=== PATIENT | male | born 1970 | race Caucasian/White ===

== ENCOUNTER 2018-01-10 12:50 | Inpatient (IN) | payer MEDICAID, OTHER ==
[~2018-01-10] VITALS: Ht 177.8 cm; Wt 113.4 kg
[2018-01-10 13:36] LABS: BASOPHILS # (AUTO) 0.2 /CMM (0.0-0.2); BASOPHILS % (AUTO) 1.9 % (0.0-2.0); EOSINOPHILS % (AUTO) 1.4 % (0.0-6.0); HEMATOCRIT 46 % (39-51); HEMOGLOBIN 15.7 g/dL (13.5-17.5); LYMPHOCYTES # (AUTO) 2.7 /CMM (0.8-4.8); LYMPHOCYTES % (AUTO) 20.3 % (20.0-44.0); MEAN CORPUSCULAR HGB CONC 34 g/dl (31.0-36.0); MEAN CORPUSCULAR VOLUME 79 fL (80-96); MONOCYTES # (AUTO) 0.8 /CMM (0.1-1.30); MONOCYTES % (AUTO) 5.8 % (2.0-12.0); NEUTROPHILS # (AUTO) 9.2 /CMM (1.8-8.9); NEUTROPHILS % (AUTO) 70.6 % (43.0-81.0); PLATELET COUNT (AUTO) 222 /CMM (150-450); RDW COEFFICIENT OF VARIATION 12.7 (11.5-15.0); RED BLOOD CELL COUNT(AUTO) 5.82 MIL/uL (4.5-6.0); WHITE BLOOD COUNT (AUTO) 13.1 K/uL (4.3-11.0)
[2018-01-10 13:50] LABS: CALCIUM, SERUM 8.7 mg/dL (8.5-10.1); CARBON DIOXIDE 27 mmol/L (21-32); CHLORIDE 102 mmol/L (98-107); GLUCOSE 108 mg/dL (74-106); POTASSIUM 3.8 mmol/L (3.5-5.1); SODIUM SERUM 137 mmol/L (136-145); UREA NITROGEN, BLOOD 16 mg/dL (7-18)
[2018-01-10 13:51] LABS: INR 0.93 (0.85-1.15)
[2018-01-10 13:58] LABS: TROPONIN I < 0.017 ng/mL (0.00-0.056)
[2018-01-10 14:01] LABS: ALANINE AMINOTRANSFERASE 26 U/L (12-78); ALBUMIN 3.8 g/dL (3.4-5.0); ALKALINE PHOSPHATASE 65 U/L (46-116); ASPARTATE AMINOTRANSFERASE 13 U/L (15-37); B-TYPE NATRIURETIC PEPTIDE 65 PG/ML (0-125); BILIRUBIN,DIRECT 0.1 mg/dL (0.0-0.2); BILIRUBIN,TOTAL 0.3 mg/dL (0.2-1.0); TOTAL PROTEIN, SERUM 7.5 g/dL (6.4-8.2)
--- NOTE | 2018-01-10 14:43 | NUR ---
PAGED DR CARTAGENA
--- NOTE | 2018-01-10 15:25 | NUR ---
PT IS ASSIGNED TO [facility]#: [id number], PT IS DIAGNOSED WITH CHEST PAIN, AND DR CARTAGENA IS THE ACCEPTING MD
[2018-01-10 16:00] VITALS: BP 164/114
--- NOTE | 2018-01-10 16:00 | NUR ---
RN NOTES PT WAS BROUGHT UP TO FLOOR IN STABLE CONDITION. PT IS AWAKE AND ALERT, AMBULATORY. PT ON RA, RESPIRATIONS ARE EVEN AND UNLABORED. IV ON L HAND INTACT AND SL. NO SIGNS OF DISTRESS NOTED. WILL CONTINUE TO MONITOR.
[2018-01-10] MEDS ORDERED: ONDANSETRON HCL/PF 4 MG/2 ML VIAL IVP PRN (16:30)
[2018-01-10] MEDS ORDERED: MAGNESIUM HYDROXIDE 30 ML UDC PO PRN (16:30)
[2018-01-10] MEDS ORDERED: MAG HYDROX/AL HYDROX/SIMETH 30 ML UDC PO PRN (16:30)
[2018-01-10] MEDS ORDERED: LISINOPRIL (10MG) 10 MG TABLET PO SCH (16:30)
[2018-01-10] MEDS ORDERED: Z GUARD REMEDY 2 OZ OINT TP PRN (16:30)
[2018-01-10] MEDS ORDERED: HYDROCODONE/APAP 5/325MG 1 EACH TABLET PO PRN (16:30)
[2018-01-10] MEDS ORDERED: ACETAMINOPHEN 325 MG TABLET PO PRN (16:30)
[2018-01-10] MEDS ORDERED: ZOLPIDEM TARTRATE 5 MG TABLET PO PRN (16:30)
[2018-01-10 16:45] VITALS: BP 164/114
[2018-01-10] MEDS: ALBUTEROL FS 2.5 MG/0.5 ML VIAL.NEB NEB SCH ×2 (17:00→19:31)
[2018-01-10] MEDS: AMLODIPINE BESYLATE 10 MG TABLET PO SCH (17:24)
[2018-01-10 18:00] VITALS: BP 168/109
[2018-01-10] MEDS: DILTIAZEM HCL CD 240 MG PO SCH (18:02)
[2018-01-10 18:26] LABS: THYROID STIMULATING HORMONE 1.375 uIU/mL (0.358-3.74)
--- NOTE | 2018-01-10 18:34 | NUR ---
RN NOTES PT IS SITTING UP IN BED, AWAKE AND ALERT. PT ON RA, RESPIRATIONS ARE EVEN AND UNLABORED. IV ON L HAND INTACT AND PATENT, SL. ALL MEDS WERE GIVEN ORDERED AND PT NEEDS MET. TELE MONITOR SHOWS SR AT 90. NO SIGNS OF DISTRESS NOTED. SAFETY MEASURES ARE IN PLACE, CALL LIGHT IS IN REACH. WILL ENDORSE TO PLY BANDER RN FOR CONTINUITY OF CARE.
--- NOTE | 2018-01-10 19:26 | NUR ---
CAMPUS RECEPTIONIST INITIAL NOTE PT IS IN BED AWAKE, A/O X3. FAMILY AT BEDSIDE. ABLE TO MAKES NEEDS KNOWN. NO SIGNS OF SOB OR DISTRESS, BREATHING EVENLY AND UNLABORED ON RA. DENIES PAIN AT THIS TIME. IV IS INTACT AND PATENT. BED IS IN LOW AND LOCKED POSITION, CALL LIGHT WITHIN REACH. WILL CONTINUE TO MONITOR PT
[2018-01-10 20:00] VITALS: BP 146/92
[2018-01-11] VITALS: BP 142/86
[2018-01-11] MEDS: ALBUTEROL FS 2.5 MG/0.5 ML VIAL.NEB NEB SCH ×7 (00:19→23:14)
[2018-01-11 03:59] VITALS: BP 129/77
[2018-01-11 04:00] VITALS: BP 129/77
--- NOTE | 2018-01-11 06:24 | NUR ---
BED SPRING MAKER CLOSING NOTE PT IS IN BED SLEEPING, EASILY AROUSED. NO SIGNS OF SOB OR DISTRESS, BREATHING EVENLY AND UNLABORED ON RA. TELE MONITOR SHOWS SR 85. PT NPO FOR CT ANGIO. NO ACUTE CHANGES THROUGHOUT THE SHIFT. ALL NEEDS WERE ANTICIPATED AND MET. BED IS IN LOW AND LOCKED POSITION, CALL LIGHT WITHIN REACH. WILL ENDORSE TO DAYSHIFT
[2018-01-11 06:38] LABS: TROPONIN I < 0.017 ng/mL (0.00-0.056)
[2018-01-11 06:39] LABS: ALANINE AMINOTRANSFERASE 31 U/L (12-78); ALBUMIN 3.5 g/dL (3.4-5.0); ALKALINE PHOSPHATASE 63 U/L (46-116); ASPARTATE AMINOTRANSFERASE 8 U/L (15-37); BILIRUBIN,TOTAL 0.4 mg/dL (0.2-1.0); CALCIUM, SERUM 8.7 mg/dL (8.5-10.1); CARBON DIOXIDE 28 mmol/L (21-32); CHLORIDE 102 mmol/L (98-107); CREATININE 0.9 mg/dL (0.6-1.3); GLUCOSE 116 mg/dL (74-106); PHOSPHORUS 4.9 mg/dL (2.5-4.9); POTASSIUM 3.6 mmol/L (3.5-5.1); SODIUM SERUM 138 mmol/L (136-145); UREA NITROGEN, BLOOD 14 mg/dL (7-18)
[2018-01-11] MEDS: AMLODIPINE BESYLATE 10 MG TABLET PO SCH (06:44)
[2018-01-11] MEDS: DILTIAZEM HCL CD 240 MG PO SCH (06:44)
[2018-01-11 06:54] LABS: CHOLESTEROL 172 mg/dL (<200); HDL CHOLESTEROL 43 mg/dL (40-60); LDL 124 mg/dL (0-99); THYROID STIMULATING HORMONE 1.231 uIU/mL (0.358-3.74); TRIGLYCERIDES 188 mg/dL (30-150)
--- NOTE | 2018-01-11 07:00 | NUR ---
COMPUTER CUSTOMER SUPPORT SPECIALIST NOTE PER CT AND DR SU, 0900 BP MEDS WERE GIVEN. RAC GAUGE 18 WAS STARTED.
--- NOTE | 2018-01-11 07:44 | NUR ---
FUSELAGE FRAMER NOTES PATIENT IS A/O X4, SINUS RHYTHM HR 86 ON THE TELE MONITOR. PATIENT IS CURRENTLY NPO, FOR CT ANGIO TEST TODAY. AM MEDS GIVEN EARLIER THAN DUE TIME PER AM NURSE REPORT. PATIENT APPEARS CALM, DENIES ANY PAIN. SAFETY MEASURES IN PLACE. WILL CONT TO MONITOR.
[2018-01-11 07:48] LABS: BASOPHILS % (AUTO) 0.1 % (0.0-2.0); EOSINOPHILS % (AUTO) 2.2 % (0.0-6.0); HEMATOCRIT 45 % (39-51); HEMOGLOBIN 15.4 g/dL (13.5-17.5); LYMPHOCYTES # (AUTO) 2.2 /CMM (0.8-4.8); LYMPHOCYTES % (AUTO) 17.7 % (20.0-44.0); MEAN CORPUSCULAR HGB CONC 34 g/dl (31.0-36.0); MEAN CORPUSCULAR VOLUME 80 fL (80-96); MONOCYTES # (AUTO) 0.9 /CMM (0.1-1.30); MONOCYTES % (AUTO) 7.1 % (2.0-12.0); NEUTROPHILS # (AUTO) 9.2 /CMM (1.8-8.9); NEUTROPHILS % (AUTO) 72.9 % (43.0-81.0); PLATELET COUNT (AUTO) 220 /CMM (150-450); RDW COEFFICIENT OF VARIATION 13.4 (11.5-15.0); RED BLOOD CELL COUNT(AUTO) 5.64 MIL/uL (4.5-6.0); WHITE BLOOD COUNT (AUTO) 12.6 K/uL (4.3-11.0)
[2018-01-11 08:00] VITALS: BP 147/93
--- NOTE | 2018-01-11 08:30 | NUR ---
ms rn received on bed, awake,alert,oriented x4,not in any form of distress,respirations even and unlabored,no sob noted, lunf=s are clear,abdomen soft,positive bowel sounds, denies pain at this time,all needs attended.
[2018-01-11] MEDS ORDERED: ERGOCALCIFEROL (VITAMIN D 2) 50,000 UNIT CAPSULE PO SCH (09:00)
--- NOTE | 2018-01-11 09:00 | NUR ---
ms rn npo at this time, will have ct angio today.
[2018-01-11] MEDS ORDERED: CT SWABBABLE VALVE TRANS SET 1 EA INFUS.SET MC ONE (09:58)
[2018-01-11] MEDS ORDERED: IOHEXOL-350 100 ML VIAL IV ONE (09:58)
[2018-01-11] MEDS ORDERED: IV NS 0.9% 500 ML IV ONE (09:58)
--- NOTE | 2018-01-11 11:00 | NUR ---
ms rn went down to or for the procedure.
[2018-01-11] MEDS ORDERED: VERAPAMIL HCL IV 5 MG/2 ML VIAL ONE (11:45)
--- NOTE | 2018-01-11 13:00 | NUR ---
ms rn came back from procedure.
[2018-01-11] MEDS ORDERED: methylPREDNISolone SOD SUCC 125 MG/2ML VIAL IV ONE (15:00)
[2018-01-11] MEDS ORDERED: diphenhydrAMINE HCL 50 MG/ML VIAL IV ONE (15:00)
--- NOTE | 2018-01-11 15:00 | NUR ---
ms rn patient ate apricot fruit, the lips were swollen for apricot,allergy
[2018-01-11 16:00] VITALS: BP 138/72
--- NOTE | 2018-01-11 18:00 | NUR ---
ms rn on bed,no distress noted. aware of swollen mouth w/ order of benadryl.
--- NOTE | 2018-01-11 19:30 | NUR ---
RN MS OPENING NOTES RECEIVED PATIENT IN BED AWAKE ALERT AND ORIENTED X 4, RESPIRATIONS EVEN AND UNLABORED WITH EQUAL RISE AND FALL OF CHEST, NOTED UPPER LIP SWELLING ABLE TO SPEAK NO DIFFICULTIES SWALLOWING, DENIES SOB AT THIS TIME, PATIENT STATES HE HAS HEADACHE AND LEG PAIN 6/10 NORCO PRN OFFERED,AGREED TO TAKE. IV TO RIGHT FA INTACT AND PATENT,NO REDNESS NO INFILTRATION PRESENT.FLUIDS OFFERED TOLERATED, ALL NEEDS ATTENDED AT THIS TIME, ORIENTED TO STAFF, CALL LIGHT KEPT WITHIN REACH, SAFETY MEASURES IN PLACE,WILL CONTINUE TO MONITOR.
[2018-01-11] MEDS: LEVOFLOXACIN 750 MG /D5W 150ML 750 MG in PREMIX 1 EA IV SCH (19:39)
[2018-01-11 20:00] VITALS: BP 132/84
--- NOTE | 2018-01-11 20:48 | NUR ---
RN MS NOTES SPOKE TO DR. PATEL REGARDING SWOLLEN UPPER LIP, PER PATIENT REQUESTING FOR CLARITIN INSTEAD OF BENADRYL , ORDERED BENADRYL 25 MG PO Q 6 HR PRN. PATIENT MADE AWARE
[2018-01-11] MEDS ORDERED: diphenhydrAMINE HCL ELIX 25 MG/10 ML UDC PO PRN (21:00)
--- NOTE | 2018-01-11 21:56 | NUR ---
RN MS NOTES PATIENT REQUESTING FOR SLEEP MEDICATION AMBIEN PRN GIVEN ORDERED, WILL CONTINUE TO MONITOR.
--- NOTE | 2018-01-11 23:21 | NUR ---
RN MS NOTES PATIENT REFUSED PO BENADRYL REQUESTING FOR IV BENADRYL , AWARE WITH NEW ORDER FOR BENADRYL 25 MG IV Q6HR PRN ORDER NOTED AND CARRIED OUT.
--- NOTE | 2018-01-11 23:23 | NUR ---
RN MS NOTES PATIENT REFUSED SCHEDULED BREATHING TREATMENT , RISK AND BENEFITS MADE AWARE.
[2018-01-11] MEDS ORDERED: diphenhydrAMINE HCL 50 MG/ML VIAL IV PRN (23:30)
[2018-01-12] MEDS: ALBUTEROL FS 2.5 MG/0.5 ML VIAL.NEB NEB SCH ×4 (03:11→15:30)
--- NOTE | 2018-01-12 06:29 | NUR ---
RN MS CLOSING NOTES PATIENT IN BED AWAKE ALERT AND ORIENTED X 4, RESPIRATIONS EVEN AND UNLABORED WITH EQUAL RISE AND FALL OF CHEST, NOTED UPPER LIP WITH SWELLING STILL PRESENT BENADRYL PRN 25 MG IV GIVEN ORDERED, PATIENT SLEPT WELL THROUGH THE NIGHT, ABLE TO SPEAK NO DIFFICULTIES SWALLOWING, DENIES SOB AT THIS TIME, IV TO RIGHT FA INTACT AND PATENT,NO REDNESS NO INFILTRATION PRESENT. DENIES ANY PAIN OR DISCOMFORT AT THIS TIME,ALL NEEDS ATTENDED AT THIS TIME AND MET , CALL LIGHT KEPT WITHIN REACH, SAFETY MEASURES IN PLACE,WILL CONTINUE TO MONITOR AND ENDORSE TO NEXT SHIFT.
--- NOTE | 2018-01-12 07:20 | NUR ---
RN NOTES PATIENT A/OX4, BREATHING EVEN AND UNLABORED, NO SOB NOTED, DENIES PAIN OR DISCOMFORT AT THIS TIME. NEEDS ATTENDED, CALL LIGHT WITHIN REACH, WILL CONTINUE TO MONITOR.
[2018-01-12 08:00] VITALS: BP 150/98
[2018-01-12] MEDS: DILTIAZEM HCL CD 240 MG PO SCH (08:16)
[2018-01-12] MEDS: AMLODIPINE BESYLATE 10 MG TABLET PO SCH (08:16)
[2018-01-12] MEDS: methylPREDNISolone SOD SUCC 40 MG/ML VIAL IV SCH ×3 (09:08→16:03)
[2018-01-12 15:28] VITALS: BP 155/87
[2018-01-12] MEDS: LEVOFLOXACIN 750 MG /D5W 150ML 750 MG in PREMIX 1 EA IV SCH (15:28)
--- NOTE | 2018-01-12 15:52 | NUR ---
RN NOTES PER LANI GASTELUM TO GIVE ANTIBIOTIC IV EARLY SO THAT PATIENT CAN BE DISCHARGED AFTER. PATIENT RECEIVED DISCHARGE INSTRUCTIONS AND VERBALIZED UNDERSTANDING, PATIENT IS TO FOLLOW UP WITH A ENGINEERING TEST SPECIALIST, CRITICAL CARE EDUCATOR AND INSET CUTTER. PRESCRIPTION GIVEN AND EXPLAINED. PATIENT'S UPPER LIP STILL NOTED WITH SWELLING, BUT HAS IMPROVED PER PATIENT. NO ITCHING, NO RESPIRATORY DISTRESS NOTED AT THIS TIME. PAPERWORKS SIGNED, COPIES MADE. BELONGINGS RECONCILED, PER PATIENT, ITS COMPLETE. NEEDS ATTENDED AND MET, CALL LIGHT WITHIN REACH, WILL CONTINUE TO MONITOR.
--- NOTE | 2018-01-12 17:00 | NUR ---
STAMP PRESSER NOTES PATIENT RECEIVED IV ANTIBIOTIC, REMOVED PIV ON RIGHT AC COVERED WITH GAUZE AND TAPE. BELONGINGS RECONCILED. DAUGHTER PRESENT AT BEDSIDE. PATIENT LEFT THE FACILITY IN NO DISTRESS VIA PRIVATE CAR.
== END 2018-01-12 17:00 | disposition home or self-care (01) | DRG 48 ==
LOC: ER 12:52 → TELE 15:43 → MED 01-11 09:08
PROVIDERS: ADMIT Internal Medicine; ATTEND Internal Medicine
DX: G90.8 Other disorders of autonomic nervous system (principal); I10 Essential (primary) hypertension; T78.3XXA Angioneurotic edema, initial encounter; T78.40XA Allergy, unspecified, initial encounter; X58.XXXA Exposure to other specified factors, initial encounter; L29.9 Pruritus, unspecified; Z88.6 Allergy status to analgesic agent; Z88.0 Allergy status to penicillin; Z88.8 Allergy status to other drugs, medicaments and biological substances; J45.909 Unspecified asthma, uncomplicated; I25.2 Old myocardial infarction; Z87.442 Personal history of urinary calculi; Z91.14 Patient's other noncompliance with medication regimen; Z82.49 Family history of ischemic heart disease and other diseases of the circulatory system; D72.829 Elevated white blood cell count, unspecified
CPT/HCPCS: 36415; 71045-TC; 75574; 80048-TC; 80053-TC; 80061-TC; 80076-TC; 82306; 83735-TC; 83880; 84100-TC; 84439-TC; 84443-TC; 84484-TC; 85025-TC; 85730-TC; 87081-TC; 93307-TC; 94799-TC; A4216; A4606; J1200; J1956; J2920; J2930; J3490; J7040; Q9967; Z7610

== ENCOUNTER 2018-01-26 17:20 | Emergency (ER) | payer MEDICAID ==
[~2018-01-26] VITALS: Ht 167.6 cm; Wt 115.2 kg
--- NOTE | 2018-01-26 17:35 | NUR ---
bb c/o sob, chest pain since am. Patient is a/ox 4, breathing even, but labored. no distress noted. "chest feels heavy" per patient. o2 sat 93% on room air, placed on 3l oxygen via nc. safety and comfort measures in place. awaiting md orders.
[2018-01-26] MEDS ORDERED: IPRATROPIUM NEB FS 0.5 MG/2.5 ML AMPUL.NEB ONE (17:39)
[2018-01-26] MEDS ORDERED: ALBUTEROL FS 2.5 MG/3 ML VIAL.NEB ONE (17:39)
[2018-01-26] MEDS: IPRATROPIUM NEB FS 0.5 MG/2.5 ML AMPUL.NEB NEB ONE (17:44)
[2018-01-26] MEDS: ALBUTEROL FS 2.5 MG/3 ML VIAL.NEB NEB ONE (17:44)
[2018-01-26 17:51] LABS: BASOPHILS # (AUTO) 0.1 /CMM (0.0-0.2); BASOPHILS % (AUTO) 0.6 % (0.0-2.0); EOSINOPHILS % (AUTO) 2.1 % (0.0-6.0); HEMATOCRIT 46 % (39-51); HEMOGLOBIN 15.8 g/dL (13.5-17.5); LYMPHOCYTES # (AUTO) 1.9 /CMM (0.8-4.8); LYMPHOCYTES % (AUTO) 13.1 % (20.0-44.0); MEAN CORPUSCULAR HGB CONC 35 g/dl (31.0-36.0); MEAN CORPUSCULAR VOLUME 80 fL (80-96); MONOCYTES # (AUTO) 0.7 /CMM (0.1-1.30); MONOCYTES % (AUTO) 4.7 % (2.0-12.0); NEUTROPHILS # (AUTO) 11.9 /CMM (1.8-8.9); NEUTROPHILS % (AUTO) 79.5 % (43.0-81.0); PLATELET COUNT (AUTO) 189 /CMM (150-450); RED BLOOD CELL COUNT(AUTO) 5.72 MIL/uL (4.5-6.0); WHITE BLOOD COUNT (AUTO) 14.9 K/uL (4.3-11.0)
--- NOTE | 2018-01-26 17:53 | NUR ---
NEW IV STARTED ON RAC, 18G. BLOOD DRAWN AND SENT TO LAB.
[2018-01-26] MEDS ORDERED: methylPREDNISolone SOD SUCC 125 MG/2ML VIAL ONE (17:57)
[2018-01-26] MEDS ORDERED: Magnesium 1GM/D5W 100ML PREMIX 200 ML IV ONE (17:57)
[2018-01-26] MEDS: methylPREDNISolone SOD SUCC 125 MG/2ML VIAL IV ONE (18:00)
[2018-01-26 18:03] LABS: CALCIUM, SERUM 8.4 mg/dL (8.5-10.1); CARBON DIOXIDE 30 mmol/L (21-32); CHLORIDE 102 mmol/L (98-107); GLUCOSE 202 mg/dL (74-106); POTASSIUM 3.5 mmol/L (3.5-5.1); SODIUM SERUM 140 mmol/L (136-145); UREA NITROGEN, BLOOD 13 mg/dL (7-18)
[2018-01-26] MEDS: Magnesium 1GM/D5W 100ML PREMIX 200 ML IV ONE (18:04)
[2018-01-26 18:13] LABS: TROPONIN I < 0.017 ng/mL (0.00-0.056)
[2018-01-26 18:15] LABS: B-TYPE NATRIURETIC PEPTIDE 54 PG/ML (0-125)
--- NOTE | 2018-01-26 19:21 | NUR ---
ASSUMED CARE. PT RESTING IN BED, PT AAOX4, NO ACUTE DISTRESS NOTED, RESP EVEN AND UNLABORED. PT DENIES PAIN OR DISCOMFORT AT THIS TIME. PT FAMILY MEMBERS AT BEDSIDE. WILL CONTINUE TO MONITOR PT CLOSELY.
--- NOTE | 2018-01-26 19:26 | NUR ---
REPORT GIVEN TO ED FOR ALONSO.
--- NOTE | 2018-01-26 20:17 | NUR ---
IV removed. Catheter intact and site benign. Pressure and 4x4 applied to site. No bleeding noted. Patient discharged to home in stable condition. Written and verbal after care instructions given. Patient verbalizes understanding of instruction. ambulatory with a steady gait noted. pt aaox4 no acute distress noted, resp even and unlabored.
[2018-01-26 20:18] VITALS: BP 143/69
== END 2018-01-26 20:19 | disposition home or self-care (01) ==
LOC: ER 17:25
DX: J44.1 Chronic obstructive pulmonary disease with (acute) exacerbation (principal); R06.02 Shortness of breath; I10 Essential (primary) hypertension; F17.200 Nicotine dependence, unspecified, uncomplicated; I25.2 Old myocardial infarction; Z88.0 Allergy status to penicillin; Z88.6 Allergy status to analgesic agent
CPT/HCPCS: 36415; 71045-TC; 80048-TC; 83880; 84484-TC; 85025-TC; A4606; J2930; J3475; Z7610

== ENCOUNTER 2018-04-09 04:35 | Inpatient (IN) | payer MEDICAID, OTHER ==
[~2018-04-09] VITALS: Ht 172.7 cm; Wt 117.9 kg
--- NOTE | 2018-04-09 04:58 | NUR ---
BBSELF C/C LEFT LOWER ABD/PELVIC PAIN RADIATING TO L FLANK X3 DAYS. +N/V. -DYSURIA. PT IS AAOX4. HX OF KIDNEY STONES. SKIN WNL. RESP EVEN AND UNLABORED. PT WITNESSED VOMITTING ONCE. MD MADE AWARE. PT NOTED TO BE IN MILD DISTRESS RELATED TO HIS FLANK PAIN 10/10 "PULLING, CRAMPING" IN NATURE. PT PLACED ON RADIOLOGIC TECHNOLOGY INSTRUCTOR AND POX. MD BEDSIDE FOR EVAL.
[2018-04-09] MEDS ORDERED: IV NS 0.9% 500 ML BAG IV ONE (05:00)
[2018-04-09] MEDS ORDERED: ONDANSETRON HCL/PF 4 MG/2 ML VIAL IVP ONE (05:00)
[2018-04-09] MEDS ORDERED: MORPHINE SULFATE INJ 2 MG/ML DISP.SYRIN IV ONE (05:00)
[2018-04-09] MEDS ORDERED: ONDANSETRON HCL/PF 4 MG/2 ML VIAL ONE (05:02)
[2018-04-09] MEDS ORDERED: MORPHINE SULFATE INJ 2 MG/ML DISP.SYRIN ONE (05:02)
[2018-04-09] MEDS ORDERED: MORPHINE SULFATE INJ 4 MG/ML DISP.SYRIN ONE (05:02)
[2018-04-09] MEDS ORDERED: HYDROMORPHONE INJ 2 MG/ML DISP.SYRIN ONE ×4 (05:18→10:36)
[2018-04-09] MEDS ORDERED: HYDROMORPHONE 1 MG/1 ML DISP.SYRIN IV ONE ×3 (05:30→08:00)
[2018-04-09 05:35] LABS: BASOPHILS % (AUTO) 0.3 % (0.0-2.0); EOSINOPHILS % (AUTO) 2.7 % (0.0-6.0); HEMATOCRIT 48 % (39-51); HEMOGLOBIN 15.6 g/dL (13.5-17.5); LYMPHOCYTES # (AUTO) 2.5 /CMM (0.8-4.8); LYMPHOCYTES % (AUTO) 22.1 % (20.0-44.0); MEAN CORPUSCULAR HEMOGLOBIN 28 PG (26.0-33.0); MEAN CORPUSCULAR HGB CONC 33 g/dl (31.0-36.0); MEAN CORPUSCULAR VOLUME 84 fL (80-96); MONOCYTES # (AUTO) 0.7 /CMM (0.1-1.30); MONOCYTES % (AUTO) 6.5 % (2.0-12.0); NEUTROPHILS # (AUTO) 7.7 /CMM (1.8-8.9); NEUTROPHILS % (AUTO) 68.4 % (43.0-81.0); PLATELET COUNT (AUTO) 214 /CMM (150-450); RDW COEFFICIENT OF VARIATION 13.4 (11.5-15.0); RED BLOOD CELL COUNT(AUTO) 5.66 MIL/uL (4.5-6.0); WHITE BLOOD COUNT (AUTO) 11.3 K/uL (4.3-11.0)
[2018-04-09 05:39] LABS: CALCIUM, SERUM 8.6 mg/dL (8.5-10.1); CREATININE 1.1 mg/dL (0.6-1.3); POTASSIUM 4.5 mmol/L (3.5-5.1)
[2018-04-09 06:50] LABS: APPEARANCE,URINE CLEAR (CLEAR); BILIRUBIN,URINE NEGATIVE (NEGATIVE); BLOOD, URINE 2+ Ery/uL (NEGATIVE); COLOR,URINE YELLOW (YELLOW); KETONES,URINE NEGATIVE (NEGATIVE); LEUKOCYTE ESTERASE ,URINE NEGATIVE (NEGATIVE); NITRITE, URINE NEGATIVE (NEGATIVE); PROTEIN,URINE NEGATIVE (NEGATIVE); UGLUCOSE NEGATIVE (NEGATIVE); UROBILINOGEN,URINE 0.2 EU/dL (0.2)
[2018-04-09 07:08] LABS: BACTERIA,URINE Rare /HPF (None Seen); SQUAMOUS EPITHELIAL CELL,UR Rare /HPF (None Seen)
--- NOTE | 2018-04-09 07:21 | NUR ---
REPORT GIVEN TO MATTEO VILLARREAL FOR ALONSO
[2018-04-09] MEDS ORDERED: oxyCODONE/APAP (5/325 MG) 1 UDTAB TABLET ONE ×2 (09:26→09:27)
[2018-04-09] MEDS ORDERED: oxyCODONE/APAP (5/325 MG) 1 UDTAB TABLET PO ONE (09:30)
--- NOTE | 2018-04-09 10:12 | NUR ---
PAGED UROLOGY - DR. ADAIR SUPERVISOR SALVAGE
[2018-04-09] MEDS ORDERED: LOSA100T15 PO (10:16)
[2018-04-09] MEDS ORDERED: LORA10TA68 PO (10:16)
[2018-04-09] MEDS ORDERED: HYDROMORPHONE INJ 0.5 MG/0.5 ML SYRINGE IV ONE (10:30)
--- NOTE | 2018-04-09 10:40 | NUR ---
PAGED EPIC FOR PANEL - ELECTRIC POWER LINE EXAMINER JITENDRA REY
--- NOTE | 2018-04-09 10:52 | NUR ---
CALLED NURSE SUP FOR MED/SURG BED
--- NOTE | 2018-04-09 11:38 | NUR ---
CALLED NURSE SUP FOR BED AGAIN
[2018-04-09] MEDS ORDERED: LEVOFLOXACIN 500 MG /D5W 100ML 500 MG/100 ML PIGGYBACK IV ONE (12:00)
--- NOTE | 2018-04-09 12:01 | NUR ---
REPORT TO DIPIKA FELIPE. PT AWAITING TRANSFER TO FLOOR.
[2018-04-09] MEDS ORDERED: LEVOFLOXACIN 500 MG /D5W 100ML 100 ML IV ONE (12:02)
[2018-04-09] MEDS ORDERED: IV D5/0.45 NACL 1,000 ML IV PRN (12:18)
[2018-04-09 12:30] VITALS: BP 154/97
[2018-04-09] MEDS ORDERED: LORATADINE 10 MG TABLET PO PRN (12:30)
[2018-04-09] MEDS ORDERED: hydrALAZINE HCL 25 MG TABLET PO PRN (12:30)
[2018-04-09] MEDS ORDERED: HYDROCODONE/APAP 5/325MG 1 EACH TABLET PO PRN (12:30)
[2018-04-09] MEDS ORDERED: ZOLPIDEM TARTRATE 5 MG TABLET PO PRN (12:30)
[2018-04-09] MEDS ORDERED: MORPHINE SULFATE INJ 2 MG/ML DISP.SYRIN IV PRN (12:30)
[2018-04-09] MEDS ORDERED: ACETAMINOPHEN 325 MG TABLET PO PRN (12:30)
[2018-04-09] MEDS ORDERED: MAGNESIUM HYDROXIDE 30 ML UDC PO PRN (12:30)
[2018-04-09] MEDS ORDERED: Z GUARD REMEDY 2 OZ OINT TP PRN (12:30)
[2018-04-09] MEDS ORDERED: MAG HYDROX/AL HYDROX/SIMETH 30 ML UDC PO PRN (12:30)
[2018-04-09] MEDS ORDERED: ONDANSETRON HCL/PF 4 MG/2 ML VIAL IVP PRN (12:30)
--- NOTE | 2018-04-09 12:30 | NUR ---
RECEIVED PATIENT FROM ER VIA GURNEY. PATIENT IS AMBULATORY, A/OX4, ABLE TO MAKE NEEDS KNOWN. AT BEDSIDE. DX OF KIDNEY STONES. NO ACUTE DISTRESS, NO SOB. DENIED PAIN AND DISCOMFORT AT THE MOMENT. IV SITE INTACT AND PATENT. KEPT PATIENT SAFE AND COMFORTABLE. DR REY ORDERS RECEIVED, NOTED AND WILL CARRY OUT. BED IN LOW/LOCKED POSITION, SIDERAILS UPX2, CALL LIGHT IN REACH. WILL CONTINUE TO MONITOR ACCORDINGLY.
--- NOTE | 2018-04-09 14:00 | NUR ---
CALLED DR ADAIR TO VERIFY ONCOMING PROCEDURE. PER DR ADAIR, MAKE A CONSENT FOR "CYSTOSCOPY WITH LEFT JJ STENT PLACEMENT AND FLUOROSCOPY".
--- NOTE | 2018-04-09 15:30 | NUR ---
RN NOTES PATIENT REPORTED THAT HE JUST PASSED HIS KIDNEY STONES DURING URINATING IN THE TOILET. PATIENT WANTS TO GO HOME NOW AGAINST MEDICAL ADVICE SINCE HE PASSED HIS KIDNEY STONES. SPECIMEN (STONE) COLLECTED, SHOWED IT TO OR NURSE AND PROCUREMENT REPRESENTATIVE. CALLED DR ADAIR, SURGEON, AND NOTIFIED ABOUT THE SITUATION. PER DR ADAIR, PATIENT CAN GO AMA IF HE WANTS TO AND IF PATIENT IS OK. WILL NOTIFY DR REY.
[2018-04-09] MEDS ORDERED: LOSARTAN POTASSIUM 25 MG TABLET PO SCH (16:00)
--- NOTE | 2018-04-09 16:07 | NUR ---
PATIENT LEFT AMA. EXPLAINED RISK OF LEAVING AGAINST MEDICAL ADVICE, VERBALIZED UNDERSTANDING, STILL WANTS TO LEAVE. AMA FORM SIGNED, EXITCARE PAPERWORK ACCEPTED BY PATIENT. SYSTEMS ADMINISTRATOR, DR REY, AND DR ADAIR IS AWARE. ALL BELONGINGS RETURNED, FORM SIGNED. REMOVED IV, APPLIED PRESSURE, NO BLEEDING, NO COMPLICATIONS. REMOVED ARMBAND.
== END 2018-04-09 16:07 | disposition left against medical advice (07) | DRG 465 ==
LOC: ER 04:40 → MEDSG2 11:54
PROVIDERS: ADMIT Internal Medicine; ATTEND Internal Medicine
DX: N13.2 Hydronephrosis with renal and ureteral calculous obstruction (principal); I10 Essential (primary) hypertension; F17.200 Nicotine dependence, unspecified, uncomplicated; I25.2 Old myocardial infarction; J45.909 Unspecified asthma, uncomplicated; I25.10 Atherosclerotic heart disease of native coronary artery without angina pectoris; Z87.442 Personal history of urinary calculi; Z88.6 Allergy status to analgesic agent; Z88.0 Allergy status to penicillin; Z88.8 Allergy status to other drugs, medicaments and biological substances; K80.20 Calculus of gallbladder without cholecystitis without obstruction
CPT/HCPCS: 36415; 76770-TC; 80048-TC; 81000-TC; 85025-TC; 87081-TC; A4606; J1170; J1956; J2270; J2405; J3490; J7040; Z7610

== ENCOUNTER 2020-05-01 16:24 | Emergency (ER) | payer MEDICAID, OTHER ==
[~2020-05-01] VITALS: Ht 170.2 cm; Wt 113.4 kg
[~2020-05-01 16:24] MED LIST: LORA10TA68 PO; LOSA100T31 PO
--- NOTE | 2020-05-01 16:58 | NUR ---
dr acevedo at bedside for eval
[2020-05-01 17:35] LABS: BASOPHILS % (AUTO) 0.3 % (0.0-2.0); EOSINOPHILS % (AUTO) 0.8 % (0.0-6.0); HEMATOCRIT 45 % (39-51); HEMOGLOBIN 14.8 g/dL (13.5-17.5); LYMPHOCYTES # (AUTO) 1.6 /CMM (0.8-4.8); LYMPHOCYTES % (AUTO) 12.4 % (20.0-44.0); MEAN CORPUSCULAR HGB CONC 33 g/dl (31.0-36.0); MEAN CORPUSCULAR VOLUME 83 fL (80-96); MONOCYTES # (AUTO) 0.8 /CMM (0.1-1.30); MONOCYTES % (AUTO) 6.6 % (2.0-12.0); NEUTROPHILS # (AUTO) 10.1 /CMM (1.8-8.9); NEUTROPHILS % (AUTO) 79.9 % (43.0-81.0); PLATELET COUNT (AUTO) 228 /CMM (150-450); RED BLOOD CELL COUNT(AUTO) 5.37 MIL/uL (4.5-6.0); WHITE BLOOD COUNT (AUTO) 12.6 K/uL (4.3-11.0)
[2020-05-01] MEDS ORDERED: ONDANSETRON HCL/PF 4 MG/2 ML VIAL ONE (17:39)
[2020-05-01] MEDS ORDERED: MORPHINE SULFATE INJ 4 MG/ML DISP.SYRIN ONE (17:39)
[2020-05-01 17:40] LABS: APPEARANCE,URINE Clear (CLEAR); BILIRUBIN,URINE Negative (NEGATIVE); BLOOD, URINE Small Ery/uL (NEGATIVE); COLOR,URINE Yellow (YELLOW); KETONES,URINE Negative (NEGATIVE); LEUKOCYTE ESTERASE ,URINE Negative (NEGATIVE); NITRITE, URINE Negative (NEGATIVE); PH,URINE 5.5 (5.0-8.0); PROTEIN,URINE 30 mg/dl (NEGATIVE); UGLUCOSE 100 MG/DL mg/dL (NEGATIVE); UROBILINOGEN,URINE 0.2 EU/dL (0.2)
[2020-05-01 17:43] LABS: CALCIUM, SERUM 8.6 mg/dL (8.5-10.1); POTASSIUM 3.6 mmol/L (3.5-5.1)
--- NOTE | 2020-05-01 17:43 | NUR ---
pt to radiology for head ct scan via [facility].
--- NOTE | 2020-05-01 17:44 | NUR ---
pt refusing morphine at this time states "its too weak for me."
[2020-05-01 17:49] LABS: ALBUMIN 4.1 g/dL (3.4-5.0); BILIRUBIN,DIRECT 0.1 mg/dL (0.0-0.2); BILIRUBIN,TOTAL 0.4 mg/dL (0.2-1.0); TOTAL PROTEIN, SERUM 7.5 g/dL (6.4-8.2)
[2020-05-01] MEDS ORDERED: HYDROMORPHONE 1 MG/1 ML DISP.SYRIN ONE (17:51)
[2020-05-01] MEDS ORDERED: MORPHINE SULFATE INJ 2 MG/ML DISP.SYRIN IV ONE (18:00)
[2020-05-01] MEDS ORDERED: ONDANSETRON HCL/PF - ER 4 MG/2 ML VIAL IV ONE (18:00)
[2020-05-01] MEDS: HYDROMORPHONE 1 MG/1 ML DISP.SYRIN IV ONE (18:08)
[2020-05-01] MEDS: ONDANSETRON HCL/PF - ER 4 MG/2 ML VIAL IV ONE (18:36)
[2020-05-01 18:41] LABS: BACTERIA,URINE Rare /HPF (None Seen); MUCUS,URINE Few /LPF (None Seen); SQUAMOUS EPITHELIAL CELL,UR Few /HPF (None Seen); WBC,URINE 0-2 /HPF (0-3)
--- NOTE | 2020-05-01 19:14 | NUR ---
[facility] [phone]
--- NOTE | 2020-05-01 19:33 | NUR ---
Patient discharged to home in stable condition. Written and verbal after care instructions given. Patient verbalizes understanding of instruction.IV removed. Catheter intact and site benign. Pressure and 4x4 applied to site. No bleeding noted.
[2020-05-01 19:34] VITALS: BP 146/98
== END 2020-05-01 19:35 | disposition home or self-care (01) ==
LOC: ER 16:24
DX: N13.2 Hydronephrosis with renal and ureteral calculous obstruction (principal); K76.0 Fatty (change of) liver, not elsewhere classified; J45.909 Unspecified asthma, uncomplicated; I10 Essential (primary) hypertension; I25.2 Old myocardial infarction; Z87.442 Personal history of urinary calculi; Z88.0 Allergy status to penicillin; Z88.6 Allergy status to analgesic agent; Z88.8 Allergy status to other drugs, medicaments and biological substances; Z79.899 Other long term (current) drug therapy
CPT/HCPCS: 36415; 74176; 80048; 80076; 81001; 83690; 85025; 96374; 96375; 99284; J1170; J2405 ×3; 81000-TC; J2270

== ENCOUNTER 2021-04-20 16:52 | Emergency (ER) | payer OTHER ==
[~2021-04-20] VITALS: Ht 170.2 cm; Wt 108.4 kg
[2021-04-20] MEDS ORDERED: ACETAMINOPHEN ES 500 MG TABLET PO ONE (18:30)
[2021-04-20] MEDS ORDERED: ACETAMINOPHEN ES 500 MG TABLET ONE (18:49)
[2021-04-20 19:08] LABS: ALANINE AMINOTRANSFERASE 50 U/L (12-78); ALBUMIN 3.7 g/dL (3.4-5.0); ALKALINE PHOSPHATASE 85 U/L (46-116); ASPARTATE AMINOTRANSFERASE 32 U/L (15-37); BILIRUBIN,DIRECT 0.1 mg/dL (0.0-0.2); BILIRUBIN,TOTAL 0.4 mg/dL (0.2-1.0); CALCIUM, SERUM 8.4 mg/dL (8.5-10.1); CARBON DIOXIDE 26 mmol/L (21-32); CHLORIDE 102 mmol/L (98-107); GLUCOSE 128 mg/dL (74-106); POTASSIUM 3.2 mmol/L (3.5-5.1); SODIUM SERUM 140 mmol/L (136-145); TOTAL PROTEIN, SERUM 7.7 g/dL (6.4-8.2); UREA NITROGEN, BLOOD 13 mg/dL (7-18)
--- NOTE | 2021-04-20 19:10 | NUR ---
covid swab sent to lab
[2021-04-20] MEDS ORDERED: POTASSIUM CHLORIDE 20 MEQ TAB.PRT.SR PO ONE ×2 (19:30→20:33)
[2021-04-20 19:46] LABS: BASOPHILS % (AUTO) 0.4 % (0.0-2.0); EOSINOPHILS % (AUTO) 0.3 % (0.0-6.0); HEMATOCRIT 46 % (39-51); HEMOGLOBIN 15.9 g/dL (13.5-17.5); LYMPHOCYTES # (AUTO) 1.3 K/uL (0.8-4.8); LYMPHOCYTES % (AUTO) 22.8 % (20.0-44.0); MEAN CORPUSCULAR HGB CONC 35 g/dl (31.0-36.0); MEAN CORPUSCULAR VOLUME 81 fL (80-96); MONOCYTES # (AUTO) 0.7 K/uL (0.1-1.30); MONOCYTES % (AUTO) 12.9 % (2.0-12.0); NEUTROPHILS # (AUTO) 3.6 K/uL (1.8-8.9); NEUTROPHILS % (AUTO) 63.6 % (43.0-81.0); PLATELET COUNT (AUTO) 152 K/uL (150-450); RED BLOOD CELL COUNT(AUTO) 5.72 MIL/uL (4.5-6.0); WHITE BLOOD COUNT (AUTO) 5.7 K/uL (4.3-11.0)
--- NOTE | 2021-04-20 19:57 | NUR ---
LAB CALLED PT COVID RESULT POSITIVE (+) INFORMED.
[2021-04-20] MEDS ORDERED: HYDROMORPHONE 1 MG/1 ML DISP.SYRIN IV ONE (20:30)
[2021-04-20] MEDS ORDERED: HYDROMORPHONE 1 MG/1 ML DISP.SYRIN ONE (20:33)
[2021-04-20] MEDS ORDERED: AZIT250T PO (20:44)
[2021-04-20] MEDS ORDERED: ACET-2605 PO (20:44)
[2021-04-20] MEDS ORDERED: DEXAMETHASONE SOD PHOSPHATE 4 MG/ML VIAL ONE (20:44)
[2021-04-20] MEDS ORDERED: DEXAMETHASONE SOD PHOSPHATE 4 MG/ML VIAL IM ONE (21:00)
--- NOTE | 2021-04-20 21:03 | NUR ---
all due medications given as ordered. Patient discharged to home in stable condition. Written and verbal after care instructions given. Patient verbalizes understanding of instruction.
[2021-04-20 21:05] VITALS: BP 133/81
== END 2021-04-20 21:00 | disposition home or self-care (01) ==
LOC: ER 16:52
DX: U07.1 COVID-19 (principal); R00.0 Tachycardia, unspecified; J98.11 Atelectasis; E87.6 Hypokalemia; I25.2 Old myocardial infarction; J45.909 Unspecified asthma, uncomplicated; Z88.6 Allergy status to analgesic agent; Z88.0 Allergy status to penicillin; Z87.442 Personal history of urinary calculi
CPT/HCPCS: 36415; 71045; 80048; 80076; 84484; 85025; 85378; 87426; 93005; 96372 ×2; 99285; C9803; J1100; J1170

== ENCOUNTER 2021-10-03 12:57 | Emergency (ER) | payer OTHER ==
[~2021-10-03] VITALS: Ht 170.2 cm; Wt 111.1 kg
[~2021-10-03 12:57] MED LIST changes: +ACET-2605 PO; +AZIT250T PO
--- NOTE | 2021-10-03 13:11 | NUR ---
TO ER BED 4, BIBS R SIDED FLANK, LOWER ABDOMINAL PAIN SINCE 4AM YESTERDAY, HX OF KIDNEY STONE, AAOX3, BREATHING EVEN AND NON LABORED, AWAITING MD ORDERS
--- NOTE | 2021-10-03 13:18 | NUR ---
SEEN BY DR LAZO
[2021-10-03] MEDS ORDERED: ONDANSETRON HCL/PF 4 MG/2 ML VIAL ONE (13:20)
[2021-10-03] MEDS ORDERED: MORPHINE SULFATE INJ 4 MG/ML DISP.SYRIN ONE (13:20)
[2021-10-03] MEDS ORDERED: MORPHINE SULFATE INJ 2 MG/ML DISP.SYRIN IV ONE (13:30)
[2021-10-03] MEDS ORDERED: IV NS 0.9% 1,000 ML BAG IV ONE (13:30)
[2021-10-03] MEDS ORDERED: ONDANSETRON HCL/PF 4 MG/2 ML VIAL IVP ONE (13:30)
--- NOTE | 2021-10-03 13:33 | NUR ---
URINE COLLECTED AND SENT TO LAB
--- NOTE | 2021-10-03 13:34 | NUR ---
SALINE LOCK ESTABLISHED, BLOOD DRAWN AND PICKED UP BY LAB
[2021-10-03 14:24] LABS: BASOPHILS % (AUTO) 0.3 % (0.0-2.0); HEMATOCRIT 47 % (39-51); HEMOGLOBIN 15.7 g/dL (13.5-17.5); LYMPHOCYTES # (AUTO) 2.2 K/uL (0.8-4.8); LYMPHOCYTES % (AUTO) 15.7 % (20.0-44.0); MEAN CORPUSCULAR HGB CONC 34 g/dl (31.0-36.0); MEAN CORPUSCULAR VOLUME 81 fL (80-96); MONOCYTES # (AUTO) 1.3 K/uL (0.1-1.30); NEUTROPHILS # (AUTO) 10.6 K/uL (1.8-8.9); PLATELET COUNT (AUTO) 211 K/uL (150-450); RED BLOOD CELL COUNT(AUTO) 5.71 MIL/uL (4.5-6.0); WHITE BLOOD COUNT (AUTO) 14.4 K/uL (4.3-11.0)
[2021-10-03] MEDS ORDERED: HYDROMORPHONE 1 MG/1 ML DISP.SYRIN IV ONE ×2 (14:30→15:00)
[2021-10-03 14:33] LABS: BILIRUBIN,URINE NEGATIVE (NEGATIVE); COLOR,URINE YELLOW (YELLOW); LEUKOCYTE ESTERASE ,URINE NEGATIVE (NEGATIVE); NITRITE, URINE NEGATIVE (NEGATIVE); PROTEIN,URINE 30 mg/dl (NEGATIVE); UGLUCOSE NEGATIVE (NEGATIVE); UROBILINOGEN,URINE 0.2 EU/dL (0.2)
[2021-10-03 14:34] LABS: CALCIUM, SERUM 8.7 mg/dL (8.5-10.1); CREATININE 1.5 mg/dL (0.6-1.3); POTASSIUM 3.7 mmol/L (3.5-5.1)
[2021-10-03 14:41] LABS: ALBUMIN 3.9 g/dL (3.4-5.0); BILIRUBIN,DIRECT 0.1 mg/dL (0.0-0.2); BILIRUBIN,TOTAL 0.7 mg/dL (0.2-1.0); TOTAL PROTEIN, SERUM 7.8 g/dL (6.4-8.2)
[2021-10-03] MEDS ORDERED: HYDROMORPHONE 1 MG/1 ML DISP.SYRIN ONE (14:47)
[2021-10-03 14:48] LABS: BACTERIA,URINE None seen /HPF (None Seen); SQUAMOUS EPITHELIAL CELL,UR None Seen /HPF (None Seen)
[2021-10-03] MEDS ORDERED: DOCU-141 PO (15:13)
[2021-10-03 16:30] VITALS: BP 121/86
--- NOTE | 2021-10-03 16:30 | NUR ---
Patient discharged to home in stable condition. Written and verbal after care instructions given. Patient verbalizes understanding of instruction. IV removed. Catheter intact and site benign. Pressure and 4x4 applied to site. No bleeding noted.
== END 2021-10-03 16:30 | disposition home or self-care (01) ==
LOC: ER 13:59
DX: N13.2 Hydronephrosis with renal and ureteral calculous obstruction (principal); K59.00 Constipation, unspecified; I25.2 Old myocardial infarction; J45.909 Unspecified asthma, uncomplicated; Z88.0 Allergy status to penicillin; Z88.6 Allergy status to analgesic agent; Z79.1 Long term (current) use of non-steroidal anti-inflammatories (NSAID); Z79.899 Other long term (current) drug therapy
CPT/HCPCS: 36415; 74176; 80048; 80076; 81001; 85025; 96361; 96374; 96375; 99284; J1170; J2270; J2405; J7030

== ENCOUNTER 2022-07-07 20:43 | Emergency (ER) | payer OTHER ==
[~2022-07-07] VITALS: Ht 167.6 cm; Wt 108.9 kg
[~2022-07-07 20:43] MED LIST changes: +DOCU-141 PO
--- NOTE | 2022-07-07 21:35 | NUR ---
abd pain radiating to back, hx of kidney stones. PATIENT IS AAOX4. ABLE TO MAKE NEEDS KNOWN. VITALS CHECKED.
--- NOTE | 2022-07-07 21:49 | NUR ---
SEEN BY GROCERY SACKER AT BEDSIDE
[2022-07-07] MEDS ORDERED: ONDANSETRON HCL/PF 4 MG/2 ML VIAL IVP ONE (22:00)
[2022-07-07] MEDS ORDERED: IV NS 0.9% 1,000 ML BAG IV ONE (22:00)
[2022-07-07] MEDS ORDERED: HYDROMORPHONE INJ 2 MG/ML DISP.SYRIN IV ONE (22:00)
--- NOTE | 2022-07-07 22:19 | NUR ---
IV CANNULA INSERTED ON RIGHT FA USING G20.
[2022-07-07] MEDS ORDERED: ONDANSETRON HCL/PF 4 MG/2 ML VIAL ONE (22:24)
[2022-07-07] MEDS ORDERED: HYDROMORPHONE 1 MG/1 ML DISP.SYRIN ONE (22:24)
--- NOTE | 2022-07-07 22:33 | NUR ---
ADDENDUM: Intravenous End Time Documentation: Normal saline 1 liter (IV-WO) : start time: 2232 ; end time:2340: IV site: RFA PIV # 20 Port # 1
[2022-07-07 22:57] LABS: BASOPHILS % (AUTO) 0.2 % (0.0-2.0); EOSINOPHILS % (AUTO) 0.3 % (0.0-6.0); HEMATOCRIT 46 % (39-51); HEMOGLOBIN 15.3 g/dL (13.5-17.5); LYMPHOCYTES # (AUTO) 1.1 K/uL (0.8-4.8); MEAN CORPUSCULAR HGB CONC 33 g/dl (31.0-36.0); MEAN CORPUSCULAR VOLUME 81 fL (80-96); MONOCYTES # (AUTO) 0.5 K/uL (0.1-1.30); MONOCYTES % (AUTO) 3.4 % (2.0-12.0); NEUTROPHILS # (AUTO) 12.6 K/uL (1.8-8.9); NEUTROPHILS % (AUTO) 88.1 % (43.0-81.0); PLATELET COUNT (AUTO) 234 K/uL (150-450); RED BLOOD CELL COUNT(AUTO) 5.72 MIL/uL (4.5-6.0); WHITE BLOOD COUNT (AUTO) 14.3 K/uL (4.3-11.0)
[2022-07-07] MEDS ORDERED: TAMSULOSIN 0.4 MG CAP.SR.24H PO ONE (23:00)
[2022-07-07] MEDS ORDERED: TAMSULOSIN 0.4 MG CAP.SR.24H ONE (23:13)
[2022-07-07 23:28] LABS: ALBUMIN 3.9 g/dL (3.4-5.0); BILIRUBIN,DIRECT 0.1 mg/dL (0.0-0.2); BILIRUBIN,TOTAL 0.4 mg/dL (0.2-1.0); CREATININE 1.1 mg/dL (0.6-1.3); POTASSIUM 3.4 mmol/L (3.5-5.1); TOTAL PROTEIN, SERUM 7.7 g/dL (6.4-8.2)
--- NOTE | 2022-07-07 23:40 | NUR ---
URINE SPECIMEN SENT TO LAB
[2022-07-08 00:04] LABS: BILIRUBIN,URINE NEGATIVE (NEGATIVE); COLOR,URINE YELLOW (YELLOW); LEUKOCYTE ESTERASE ,URINE TRACE (NEGATIVE); NITRITE, URINE NEGATIVE (NEGATIVE); PH,URINE 5.5 (5.0-8.0); PROTEIN,URINE TRACE mg/dl (NEGATIVE); UGLUCOSE NEGATIVE (NEGATIVE); UROBILINOGEN,URINE 0.2 EU/dL (0.2)
[2022-07-08 00:06] LABS: BACTERIA,URINE Few /HPF (None Seen); SQUAMOUS EPITHELIAL CELL,UR Moderate /HPF (None Seen)
[2022-07-08] MEDS ORDERED: GENTAMICIN 80 MG in IV D5W 50 ML IV ONE (00:30)
[2022-07-08] MEDS ORDERED: GENTAMICIN 80 MG/2 ML VIAL ONE (01:13)
[2022-07-08] MEDS ORDERED: MORPHINE SULFATE INJ 2 MG/ML DISP.SYRIN ONE (01:14)
[2022-07-08] MEDS ORDERED: IV NS 0.9% 1,000 ML BAG IV ONE (01:30)
[2022-07-08] MEDS ORDERED: MORPHINE SULFATE INJ 2 MG/ML DISP.SYRIN IV ONE (01:30)
[2022-07-08] MEDS ORDERED: TAMS-12 PO (01:37)
[2022-07-08] MEDS ORDERED: HYDR-4303 PO (01:37)
[2022-07-08] MEDS ORDERED: CIPR500T5 PO (01:39)
[2022-07-08] MEDS ORDERED: OXYC-128 PO (01:49)
[2022-07-08] MEDS ORDERED: HYDROMORPHONE 1 MG/1 ML DISP.SYRIN IV ONE (02:00)
[2022-07-08] MEDS ORDERED: HYDROMORPHONE 1 MG/1 ML DISP.SYRIN ONE (02:30)
--- NOTE | 2022-07-08 02:46 | NUR ---
IV CANNULA REMOVED
[2022-07-08 02:47] VITALS: BP 140/90
--- NOTE | 2022-07-08 02:47 | NUR ---
Patient discharged to home in stable condition. Written and verbal after care instructions given. Patient verbalizes understanding of instruction.
== END 2022-07-08 02:48 | disposition home or self-care (01) ==
LOC: ER 20:45
DX: N13.2 Hydronephrosis with renal and ureteral calculous obstruction (principal); K57.30 Diverticulosis of large intestine without perforation or abscess without bleeding; N39.0 Urinary tract infection, site not specified; I10 Essential (primary) hypertension; E11.9 Type 2 diabetes mellitus without complications; E78.00 Pure hypercholesterolemia, unspecified; I25.2 Old myocardial infarction; J45.909 Unspecified asthma, uncomplicated; F17.200 Nicotine dependence, unspecified, uncomplicated; Z87.442 Personal history of urinary calculi; Z88.0 Allergy status to penicillin; Z88.8 Allergy status to other drugs, medicaments and biological substances; Z79.899 Other long term (current) drug therapy
CPT/HCPCS: 99284; 74176; 96375 ×2; 85025; 80048; 83690; 80076; 81001; 36415; 82962; 96365; 96376; J2405; J7030 ×2; J1170 ×2; J1580 ×2; J7060; J2270